=== PATIENT | female | born 1980 | race Caucasian/White ===

== ENCOUNTER 2020-06-03 12:02 | Emergency (ER) | payer OTHER ==
[~2020-06-03] VITALS: Ht 177.8 cm; Wt 97.5 kg
[2020-06-03] MEDS ORDERED: Bactrim Ds Tab1 EACH PO (17:13)
== END 2020-06-03 17:20 | disposition home or self-care (01) ==
LOC: ER 12:02
DX: N75.0 Cyst of Bartholin's gland (principal)
CPT/HCPCS: 56420; 99282-25

== ENCOUNTER 2020-06-05 18:06 | Observation (INO) | payer OTHER ==
[~2020-06-05] VITALS: Ht 177.8 cm; Wt 97.2 kg
[~2020-06-05 18:06] MED LIST: Bactrim Ds Tab1 EACH PO
[2020-06-05] MEDS ORDERED: DULO60 PO (18:30)
[2020-06-05] MEDS ORDERED: GEMF600 PO (18:30)
[2020-06-05] MEDS ORDERED: PANT20 PO (18:31)
[2020-06-05] MEDS ORDERED: METTREX2.5 PO (18:31)
[2020-06-05] MEDS ORDERED: Robaxin750 MG PO (18:45)
[2020-06-05 18:47] LABS: BASOPHILS ABSOLUTE AUTO 0.04 K/mm3 (0.00-0.23); BASOPHILS PERCENT AUTO 0 % (0-2); EOSINOPHILS ABSOLUTE AUTO 0.14 K/mm3 (0.00-0.68); EOSINOPHILS PERCENT AUTO 1 % (0-6); Hematocrit 40.7 % (33.0-51.0); Hemoglobin 13.3 g/dL (11.5-16.0); IMMATURE GRAN ABSOLUTE AUTO 0.08 K/mm3 (0.00-0.10); IMMATURE GRAN PERCENT AUTO 1 % (0-1); LYMPHOCYTES PERCENT AUTO 13 % (21-46); MONOCYTES ABSOLUTE AUTO 0.97 K/mm3 (0.16-1.47); MONOCYTES PERCENT AUTO 8 % (4-13); Mean Corpuscular HGB 34.5 pg (26.0-34.0); Mean Corpuscular HGB Conc 32.7 g/dL (31.5-36.5); Mean Corpuscular Volume 105 fL (80-100); Mean Platelet Volume 10.2 fL (9.1-12.4); NEUTROPHILS ABSOLUTE AUTO 10.08 K/mm3 (1.96-9.15); NEUTROPHILS PERCENT AUTO 77 % (41-73); Platelet Count 212 K/mm3 (150-400); RDW Coefficient Variation 12.9 % (11.7-14.2); RDW Standard Deviation 48.9 fL (35.1-46.3); Red Blood Cell Count 3.86 M/mm3 (3.80-5.20); White Blood Cell Count 13.01 K/mm3 (4.00-11.30)
--- NOTE | 2020-06-05 19:40 | NUR ---
PT TO OR DR + OR NURSE IN ROOM, PT TAKE TO OR.
--- NOTE | 2020-06-05 21:02 | NUR ---
06/05/202101 Sofi Sanchez PLACED BY DR DAVSI INTRAOPERATIVELY
--- NOTE | 2020-06-05 21:23 | NUR ---
PT UP TO ICU 16 FROM OR. VSS. PT TREMULOUS. WARM BLANKET GIVEN
[2020-06-06 04:18] LABS: BASOPHILS ABSOLUTE AUTO 0.03 K/mm3 (0.00-0.23); BASOPHILS PERCENT AUTO 0 % (0-2); EOSINOPHILS PERCENT AUTO 0 % (0-6); Hematocrit 38.3 % (33.0-51.0); Hemoglobin 12.2 g/dL (11.5-16.0); IMMATURE GRAN ABSOLUTE AUTO 0.14 K/mm3 (0.00-0.10); IMMATURE GRAN PERCENT AUTO 1 % (0-1); LYMPHOCYTES ABSOLUTE AUTO 1.04 K/mm3 (0.84-5.20); LYMPHOCYTES PERCENT AUTO 7 % (21-46); MONOCYTES ABSOLUTE AUTO 0.68 K/mm3 (0.16-1.47); MONOCYTES PERCENT AUTO 5 % (4-13); Mean Corpuscular HGB 34.3 pg (26.0-34.0); Mean Corpuscular HGB Conc 31.9 g/dL (31.5-36.5); Mean Corpuscular Volume 108 fL (80-100); Mean Platelet Volume 10.2 fL (9.1-12.4); NEUTROPHILS ABSOLUTE AUTO 12.76 K/mm3 (1.96-9.15); NEUTROPHILS PERCENT AUTO 87 % (41-73); Platelet Count 234 K/mm3 (150-400); RDW Coefficient Variation 12.9 % (11.7-14.2); RDW Standard Deviation 50.5 fL (35.1-46.3); Red Blood Cell Count 3.56 M/mm3 (3.80-5.20); White Blood Cell Count 14.65 K/mm3 (4.00-11.30)
--- NOTE | 2020-06-06 06:09 | NUR ---
SHIFT SUMMARY: ED IS A&OX4. VSS, NO ACUTE EVENTS OVERNIGHT PACKING TO RIGHT LABIA/VAGINA INTACT WITH SMALL AMOUNT OF DRAINAGE, DECREASING DURING SHIFT. SHE REPORTS ADEQUATE PAIN CONTROL WITH DILAUDID AND FENTANYL. SHE STATES THAT SHE FEELS THE CATHETER IS THE MOST PAINFUL ASPECT AND THAT SHE WAS UNABLE TO TOLERATE THE CATHETER WHEN SHE HAD HER HYSTERECTOMY WELL. SHE USES HER CALL LIGHT APPROPRIATELY. MIXON DRAINING CLEAR, YELLOW URINE. SHE IS TOLERATING PO INTAKE WELL. SHE IS LYING IN BED WITH HER CALL LIGHT IN REACH. WILL REPORT TO DAY SHIFT RN.
[2020-06-06] MEDS ORDERED: IBUP800 PO (12:56)
[2020-06-06] MEDS ORDERED: Percocet 5-3251 EACH PO (12:56)
--- NOTE | 2020-06-06 13:12 | NUR ---
provided pt with discharge instructions, written prescriptions, extra esperanza supplies. pt reports understanding of instructions. pt declines wheelchair transport to awaiting vehicle, prefers to walk and carry her own bagged belongings.
== END 2020-06-06 13:14 | disposition home or self-care (01) ==
LOC: ORD 18:06 → SURS 18:08
PROVIDERS: ADMIT Obstetrics & Gynecology
DX: N76.4 Abscess of vulva (principal); L40.50 Arthropathic psoriasis, unspecified; F17.210 Nicotine dependence, cigarettes, uncomplicated; F32.9 Major depressive disorder, single episode, unspecified; Z79.2 Long term (current) use of antibiotics; Z79.899 Other long term (current) drug therapy; Z90.710 Acquired absence of both cervix and uterus; Z90.711 Acquired absence of uterus with remaining cervical stump; Z20.828 Contact with and (suspected) exposure to other viral communicable diseases; Z23 Encounter for immunization
CPT/HCPCS: 36415; 85025; 86850; 86900; 86901; 88305; 96374; 96375; 96376; A9270; G0378; J0690; J1100; J1170; J2250; J2405; J2704; J2710; J3010; U0003